=== PATIENT | female | born 1960 | race Caucasian/White ===

== ENCOUNTER 2017-07-23 13:36 | Inpatient (IN) | payer OTHER ==
[~2017-07-23] VITALS: Ht 162.6 cm; Wt 78.0 kg
[2017-07-23] MEDS ORDERED: IV NORMAL SALINE 1000 ML BAG IV ONE (14:00)
--- NOTE | 2017-07-23 14:08 | NUR ---
Pt evaluated by MD for abd pain, a/o x 4, nad at this time, vss, cont with MD orders.
[2017-07-23 14:23] LABS: CREATININE 0.7 mg/dL (0.6-1.3); POTASSIUM 3.9 mmol/L (3.5-5.1)
[2017-07-23 14:30] LABS: *URINE HCG, QUAL NEGATIVE (NEGATIVE)
[2017-07-23 14:33] LABS: BILIRUBIN,DIRECT 0.1 mg/dL (0.0-0.2); BILIRUBIN,TOTAL 0.3 mg/dL (0.2-1.0); TOTAL PROTEIN, SERUM 7.8 g/dL (6.4-8.2)
[2017-07-23 14:35] LABS: *BILIRUBIN,URIN NEGATIVE (NEGATIVE); *BLOOD, URINE 2+ (NEGATIVE); *COLOR,URINE YELLOW (YELLOW); *KETONES,URINE TRACE (NEGATIVE); *PROTEIN,URINE 1+ (NEGATIVE); *UROBILINOGEN,URINE 0.2 E.U./dl (NORMAL); LEUKOCYTE ESTERASE ,URINE NEGATIVE (NEGATIVE); NITRITE, URINE NEGATIVE (NEGATIVE); PH,URINE 5.5 (5.0-8.0); UGLUCOSE NEGATIVE (NEGATIVE)
[2017-07-23 14:43] LABS: BASOPHILS % (AUTO) 0.3 % (0.0-2.0); EOSINOPHILS # (AUTO) 0.2 K/uL (0.0-0.7); EOSINOPHILS % (AUTO) 1.6 % (0.0-7.0); HEMATOCRIT 37.9 % (37-47); HEMOGLOBIN 12.3 G/DL (12.0-16.0); LYMPHOCYTES # (AUTO) 2.2 K/UL (0.8-4.8); LYMPHOCYTES % (AUTO) 18.7 % (20.5-51.5); MEAN CORPUSCULAR HEMOGLOBIN 25.5 UUG (27.0-31.0); MEAN CORPUSCULAR HGB CONC 33 g/dL (32.0-37.0); MEAN CORPUSCULAR VOLUME 78.2 FL (81.0-99.0); MONOCYTES # (AUTO) 0.5 K/UL (0.1-1.30); MONOCYTES % (AUTO) 4.3 % (0.0-11.0); NEUTROPHILS # (AUTO) 8.9 K/UL (1.8-8.9); NEUTROPHILS % (AUTO) 75.1 % (38.5-71.5); PLATELET COUNT (AUTO) 335 K/UL (150-450); RED BLOOD CELL COUNT(AUTO) 4.84 MIL/UL (4.2-5.4); WHITE BLOOD COUNT (AUTO) 11.8 K/UL (4.0-11.2)
[2017-07-23 14:56] LABS: *CLARITY,URINE SLIGHTLY CLOUDY (CLEAR)
[2017-07-23 14:57] LABS: BACTERIA,URINE MODERATE /HPF (NONE SEEN); SQUAMOUS EPITHELIAL CELL,UR MANY /HPF (NONE SEEN); WBC,URINE 0-3 /HPF (0-3)
[2017-07-23 14:58] LABS: MUCUS,URINE MANY /LPF (0-FEW)
[2017-07-23] MEDS ORDERED: PIPERACILLIN SODIUM/TAZOBACTAM 3.375 G in IV DEXTROSE 5% 50 ML IV ONE (15:30)
[2017-07-23] MEDS ORDERED: PIPERACILLIN/TAZOBACTAM/D5W 50 ML IV ONE (15:42)
[2017-07-23] MEDS ORDERED: ACETAMINOPHEN 650 MG SUPP.RECT RC PRN (17:15)
[2017-07-23] MEDS ORDERED: MORPHINE SULFATE 2 MG/1 ML DISP.SYRIN IV PRN (17:15)
[2017-07-23] MEDS ORDERED: ONDANSETRON 4 MG/2 ML VIAL IV PRN (17:15)
--- NOTE | 2017-07-23 17:35 | NUR ---
TRANSFERED TO 2ND FLOOR VIA MILES
--- NOTE | 2017-07-23 17:45 | NUR ---
NEW ADMISSION TO ROOM 220
[2017-07-23] MEDS: IV D5/ 0.9% NACL 1,000 ML IV PRN (18:29)
--- NOTE | 2017-07-23 19:10 | NUR ---
PATIENT AWAKE ALERT, ABLE TO MAKE NEEDS KNOWN, DENIES PAIN AT THIS TIME. NO SOB NO CHEST PAIN, FAMILY AT BEDSIDE.
[2017-07-23 20:30] VITALS: BP 127/58
[2017-07-23] MEDS: LEVOFLOXACIN 500 MG/D5W 500 MG in PREMIXED 1 EACH IV SCH (21:06)
[2017-07-23] MEDS: METRONIDAZOLE 500 MG/NS 100ML 500 MG in PREMIXED 1 EACH IV SCH (22:09)
[2017-07-24] MEDS ORDERED: NITROGLYCERIN 0.4 MG/TAB BOTTLE SL PRN (00:15)
--- NOTE | 2017-07-24 00:15 | NUR ---
PATIENT COMPLAIN SHARP PAIN ON LEFT CHEST, BUT IT DOES NOT RADIATE TO LEFT ARM, LEFT SHOULDER, OR LEFT JAW. SKIN WARM AND DRY, NO SOB , BP 142/61, HR 67, OXYGEN SAT 98% IN ROOM AIR. KEPT HOB ELEVATED, PATIENT PLACE ON OXYGEN NC, BUT REFUSED THE OXYGEN, PATIENT OFFERED MORPHINE FOR PAIN BUT REFUSED PAIN MEDICATIONS. TAUGHT PATIENT TO RELAX, AND WATCH TV TO BE DESTRUCTED FROM HER WORRIES. DR MALDONADO WAS NOTIFIED WITH ORDERED.
--- NOTE | 2017-07-24 00:30 | NUR ---
PATIENT AWAKE, HOB ELEVATED, REPORTED THAT THE PAIN CHEST AREA IS LOT BETTER, CONT TO OFFER TO USE OXYGEN NASAL CANNULA, BUT REFUSED, NO S/S OF DISTRESS. OFFERED NITRO BUT REFUSED TO TAKE MEDICATIONS, CONT TO MONITOR.
--- NOTE | 2017-07-24 02:06 | NUR ---
MADE ROUNDS, PATIENT ASLEEP NO COMPLAIN OF PAIN, CALL LIGHT WITHIN REACH.
[2017-07-24 04:00] VITALS: BP 140/51
--- NOTE | 2017-07-24 05:13 | NUR ---
PATIENT SLEPT MOST OF THE NIGHT, NO FURTHER EPISODE OF CHEST PAIN, ASSISTED WITH TOILETING, CONT NPO ORDERED, ABDOMEN SWOLLEN BUT DENIES PAIN, REFUSED PAIN MEDS, CONT TO MONITOR.
[2017-07-24] MEDS: METRONIDAZOLE 500 MG/NS 100ML 500 MG in PREMIXED 1 EACH IV SCH ×3 (05:22→22:08)
[2017-07-24 06:28] LABS: BASOPHILS % (AUTO) 0.3 % (0.0-2.0); EOSINOPHILS # (AUTO) 0.3 K/uL (0.0-0.7); EOSINOPHILS % (AUTO) 2.7 % (0.0-7.0); HEMOGLOBIN 12.1 G/DL (12.0-16.0); LYMPHOCYTES # (AUTO) 2.2 K/UL (0.8-4.8); LYMPHOCYTES % (AUTO) 20.7 % (20.5-51.5); MEAN CORPUSCULAR HEMOGLOBIN 25.7 UUG (27.0-31.0); MEAN CORPUSCULAR HGB CONC 33 g/dL (32.0-37.0); MEAN CORPUSCULAR VOLUME 78.7 FL (81.0-99.0); MONOCYTES # (AUTO) 0.6 K/UL (0.1-1.30); MONOCYTES % (AUTO) 5.8 % (0.0-11.0); NEUTROPHILS # (AUTO) 7.4 K/UL (1.8-8.9); NEUTROPHILS % (AUTO) 70.5 % (38.5-71.5); PLATELET COUNT (AUTO) 338 K/UL (150-450); RED BLOOD CELL COUNT(AUTO) 4.69 MIL/UL (4.2-5.4); WHITE BLOOD COUNT (AUTO) 10.5 K/UL (4.0-11.2)
[2017-07-24 07:01] LABS: BILIRUBIN,TOTAL 0.3 mg/dL (0.2-1.0); CREATININE 0.6 mg/dL (0.6-1.3); MAGNESIUM 1.7 mg/dL (1.8-2.4); PHOSPHOROUS 2.8 mg/dL (2.5-4.9); POTASSIUM 3.5 mmol/L (3.5-5.1); TOTAL PROTEIN, SERUM 7.1 g/dL (6.4-8.2)
[2017-07-24 07:04] LABS: THYROID STIMULATING HORMONE 2.36 mIU/mL (0.358-3.740)
--- NOTE | 2017-07-24 07:30 | NUR ---
RECEIVED REPORT FROM [employer] NURSE, PATIENT IN BED ASLEEP, NO EVIDENCE OF DISTRESS NOTED, BED IN LOW POSITION, SIDE RAILS UP X2.
[2017-07-24] MEDS ORDERED: POTASSIUM CHLORIDE 20 MEQ TAB.PRT.SR PO ONE (10:30)
[2017-07-24] MEDS ORDERED: MAGNESIUM SULFATE/D5W 100 ML IV SCH (10:30)
[2017-07-24] MEDS: IV D5/ 0.9% NACL 1,000 ML IV PRN (11:21)
[2017-07-24 11:24] VITALS: BP 121/46
[2017-07-24 16:18] VITALS: BP 123/48
--- NOTE | 2017-07-24 18:40 | NUR ---
Patient tolerated liquid diet well, per Dr. Ramirez patient is ok to eat a sandwich and advanced to a regular diet. Patient has not experienced pain or asked for medication for nausea, tolerated a shower independently. Patient reports feeling much better and is watching TV.
--- NOTE | 2017-07-24 19:30 | NUR ---
Received pt in bed, awake alert and oriented x 4. No apparent distress noted. Pt is verbally responsive. Speaks pashto, but prefers slovenian. Pt in bed, denies pain or discomfort at this time. Safety measures and fall precautions maintained. Continue current plan of care.
[2017-07-24 20:34] VITALS: BP 123/47
[2017-07-24] MEDS: LEVOFLOXACIN 500 MG/D5W 500 MG in PREMIXED 1 EACH IV SCH (21:00)
[2017-07-24] MEDS: OMEGA-3 FATTY ACIDS/FISH OIL CAPSULE PO SCH (21:00)
--- NOTE | 2017-07-24 23:22 | NUR ---
Pt complaining of pressure in her chest. Offered Nitro and Morphine PRN as ordered x 2, pt refused both times. VS WNL BP 132/54 HR 67 RR 18 O2 sat 97% T 98.4 F. Taught pt to keep HOB elevated 30 degrees, explained to pt that all labs are within normal limits and troponin levels negative. Explained and assured pt that MD is aware of her condition and is continuing to monitor her progress. Will continue to monitor.
--- NOTE | 2017-07-25 00:10 | NUR ---
Pt currently asleep in bed with HOB elevated. No further complaints of pain. Call light within reach, bed locked and in lowest position w/ side rails up x 2. Will continue to monitor.
[2017-07-25] MEDS: IV D5/ 0.9% NACL 1,000 ML IV PRN (04:18)
[2017-07-25 05:54] VITALS: BP 124/50
[2017-07-25] MEDS: METRONIDAZOLE 500 MG/NS 100ML 500 MG in PREMIXED 1 EACH IV SCH (05:54)
[2017-07-25 06:24] LABS: BASOPHILS % (AUTO) 0.6 % (0.0-2.0); EOSINOPHILS # (AUTO) 0.2 K/uL (0.0-0.7); EOSINOPHILS % (AUTO) 2.8 % (0.0-7.0); HEMATOCRIT 35.9 % (37-47); HEMOGLOBIN 11.8 G/DL (12.0-16.0); LYMPHOCYTES # (AUTO) 2.3 K/UL (0.8-4.8); LYMPHOCYTES % (AUTO) 29.5 % (20.5-51.5); MEAN CORPUSCULAR HGB CONC 33 g/dL (32.0-37.0); MONOCYTES # (AUTO) 0.4 K/UL (0.1-1.30); MONOCYTES % (AUTO) 5.2 % (0.0-11.0); NEUTROPHILS % (AUTO) 61.9 % (38.5-71.5); PLATELET COUNT (AUTO) 347 K/UL (150-450); RED BLOOD CELL COUNT(AUTO) 4.55 MIL/UL (4.2-5.4); WHITE BLOOD COUNT (AUTO) 7.9 K/UL (4.0-11.2)
[2017-07-25 06:27] LABS: BILIRUBIN,TOTAL 0.3 mg/dL (0.2-1.0); CREATININE 0.7 mg/dL (0.6-1.3); MAGNESIUM 2.1 mg/dL (1.8-2.4); PHOSPHOROUS 3.3 mg/dL (2.5-4.9); POTASSIUM 3.9 mmol/L (3.5-5.1); TOTAL PROTEIN, SERUM 6.8 g/dL (6.4-8.2)
--- NOTE | 2017-07-25 07:05 | NUR ---
END OF SHIFT REPORT: No further complaints of pain, resident slept throughout the night. Right AC peripheral IV noted to have infiltrated. IV D/C and re-started on L hand 22g, with good blood return. Tolerated well. Pt denies any discomfort or pain at this time. Kept clean and dry, call light within reach. Side rails up x 2, bed locked and in lowest position.
--- NOTE | 2017-07-25 07:29 | NUR ---
RECEIVED REPORT FROM [employer] NURSE, PATIENT IN BED AWAKE, NO EVIDENCE OF DISTRESS NOTED, BED IN LOW POSITION, SIDE RAILS UP X2
[2017-07-25] MEDS: OMEGA-3 FATTY ACIDS/FISH OIL CAPSULE PO SCH (08:00)
[2017-07-25 11:58] VITALS: BP 118/46
[2017-07-25] MEDS ORDERED: OMEG1CAP PO (12:39)
[2017-07-25] MEDS ORDERED: LEVO500T2 PO (12:39)
[2017-07-25] MEDS ORDERED: METR500T4 PO (12:39)
--- NOTE | 2017-07-25 13:13 | NUR ---
d/c orders received noted and carried out,d/c instructions and educations given to the pt.d/c heplock per md orders.pt left the facility accompanied by her daughter in stable condition.
[2017-07-25] MEDS ORDERED: METRONIDAZOLE 500 MG TABLET PO SCH (14:00)
[2017-07-25] MEDS ORDERED: LEVOFLOXACIN 500 MG TABLET PO SCH (21:00)
== END 2017-07-25 13:17 | disposition home or self-care (01) | DRG 392 ==
LOC: ER 13:36 → MED 17:28
PROVIDERS: ADMIT Internal Medicine; ATTEND Internal Medicine
DX: K57.32 Diverticulitis of large intestine without perforation or abscess without bleeding (principal); K76.0 Fatty (change of) liver, not elsewhere classified; E66.9 Obesity, unspecified; Z68.29 Body mass index [BMI] 29.0-29.9, adult; E78.5 Hyperlipidemia, unspecified; R73.03 Prediabetes; R91.1 Solitary pulmonary nodule
CPT/HCPCS: 36415; 70030-TC; 83605; 83690; 83735; 84100; 84443; 84703; 85025; 87040; A4663; J1956; J2543; J3475; J3490; J7030; J7042